=== PATIENT | female | born 1965 | race Caucasian/White ===

== ENCOUNTER 2018-03-23 01:57 | Emergency (ER) | payer MEDICARE, OTHER ==
[~2018-03-23] VITALS: Ht 162.6 cm; Wt 90.7 kg
--- NOTE | 2018-03-23 02:06 | NUR ---
PT BIB RA. COMP OF HAVING "LOWER BACK PAIN, B L L E WEAKNESS, DIZZINESS" NO SOB NOTED. NO ACUTE DISTRESS AT THIS TIME. PT AOX4. AWARE OF SAFETY NEEDS. AWAITING MD BLANK.
--- NOTE | 2018-03-23 02:09 | NUR ---
TECH AT BEDSIDE FOR EKG
--- NOTE | 2018-03-23 02:25 | NUR ---
Note miguel a in EDM - 03/23/18 at 0241 by JOSEPH PT MT RA. COMP OF HAVING "LOWER BACK PAIN, B L L E WEAKNESS, DIZZINESS" NO SOB NOTED. NO ACUTE DISTRESS AT THIS TIME. PT AOX4. AWARE OF SAFETY NEEDS. AWAITING MD BLANK.
[2018-03-23] MEDS ORDERED: IV NS 0.9% 1,000 ML BAG IV ONE ×2 (02:30→06:00)
[2018-03-23 02:36] LABS: BASOPHILS # (AUTO) 0.1 /CMM (0.0-0.2); BASOPHILS % (AUTO) 0.7 % (0.0-2.0); HEMATOCRIT 41 % (33-45); HEMOGLOBIN 13.7 g/dL (11.5-14.8); LYMPHOCYTES # (AUTO) 1.8 /CMM (0.8-4.8); LYMPHOCYTES % (AUTO) 18.5 % (20.0-44.0); MEAN CORPUSCULAR HGB CONC 34 g/dl (31.0-36.0); MEAN CORPUSCULAR VOLUME 88 fL (82-100); MONOCYTES % (AUTO) 10.1 % (2.0-12.0); NEUTROPHILS # (AUTO) 6.8 /CMM (1.8-8.9); NEUTROPHILS % (AUTO) 69.7 % (43.0-81.0); PLATELET COUNT (AUTO) 241 /CMM (150-450); RED BLOOD CELL COUNT(AUTO) 4.63 MIL/uL (4.0-5.2); WHITE BLOOD COUNT (AUTO) 9.7 K/uL (4.3-11.0)
[2018-03-23 02:43] LABS: CREATININE 1.1 mg/dL (0.6-1.3); POTASSIUM 3.6 mmol/L (3.5-5.1)
--- NOTE | 2018-03-23 02:43 | NUR ---
PT TAKEN TO RADIOLOGY FOR CT VIA [facility]
[2018-03-23 02:49] LABS: BILIRUBIN,DIRECT 0.1 mg/dL (0.0-0.2); BILIRUBIN,TOTAL 0.4 mg/dL (0.2-1.0); TOTAL PROTEIN, SERUM 7.9 g/dL (6.4-8.2)
[2018-03-23] MEDS ORDERED: HYDROCODONE/APAP 10/325MG 1 EA TABLET PO ONE (04:00)
[2018-03-23] MEDS ORDERED: HYDROCODONE/APAP 10/325MG 1 EA TABLET ONE (04:07)
--- NOTE | 2018-03-23 05:32 | NUR ---
Patient is resting comfortably in bed with eyes closed. Easily aroused. VSS. PT RESP EVEN AND UNLABORED. NAD NOTED. WILL CONTINUE TO MONITOR.
--- NOTE | 2018-03-23 07:00 | NUR ---
received report from manufacturing supervisor 2nd shift RN, patient is resting and sleeping, in no apparent distress noted.
--- NOTE | 2018-03-23 07:24 | NUR ---
ENDORSED TO DONNELL DONIS FOR [facility]
--- NOTE | 2018-03-23 15:30 | NUR ---
called [facility] and informed to talk to the patient in regards with housing.
--- NOTE | 2018-03-23 15:45 | NUR ---
[facility] spoke to the patient and agreed to go to a board and care and will be citrus picker at 1635 by the carbon setter of the board and care.
--- NOTE | 2018-03-23 16:10 | NUR ---
LILLIANA received a call from pt's DONNELL Newman in ED stating pt. needs placement. Pt. is a 52 year old female who came to ED complaining about back pain. Per ED physician, Dr. Ford, patient has multiple somatic complaints which apparently started 5 days ago when she allegedly tripped on a opening in the driveway of a residence that she was staying at. LILLIANA met with pt. bedside. Pt. is alert and oriented x 4. Pt. states she was renting a room from [employer] but left the residence because it was filthy. Pt's though process is circumstantial. Pt. has all of her belongings in a UHAUL. Pt. is open to going to a board and care. LILLIANA contacted [facility]'s board and care with pt. bedside to inquire if she has any female beds available. Leonela informed SW she does and to fax H&P from ED, medications and face sheet. LILLIANA faxed the aforementioned documents to [facility] at . LILLIANA received a call from Leonela stating she will accept the pt. at the [place] location and the marble finisher Sandie will be coming to visit and flower picker patient between 4:30p-5PM if pt. agrees to go. LILLIANA informed pt. about the marble finisher of the Board and Care coming to visit and pick her up if she agrees to go. Pt. has many questions that SW informed pt. to ask Sandie, the marble finisher. LILLIANA inquired with pt. what is her plan B incase she doesn't go to the board and care. Pt. stated she will ask her friend to pick her up and will stay at a motel if she needs to. LILLIANA updated DONNELL Newman with pt's discharge plan. No other social service needs are requested at this time. SW is available if needed.
--- NOTE | 2018-03-23 19:14 | NUR ---
board and care sales representative livestock on site and went to the patient room.
--- NOTE | 2018-03-23 19:26 | NUR ---
report given to fast food shift lead RN for [facility].
--- NOTE | 2018-03-23 19:30 | NUR ---
Received pt from DONNELL Newman. Pt came in with multiuple complaints pending placement in [facility]; [employer] data [facility] developer of facility, [facility], at . Pt states "I have other plans."
--- NOTE | 2018-03-23 21:00 | NUR ---
Pt stated she is calling a friend to come pick her up. Resting in bed comfortably.
--- NOTE | 2018-03-23 23:30 | NUR ---
Pt finally agreed to leave the unit. Stated she spoke with her friend on the phone and she will come pick her up. Assisted pt to the waiting area.
[2018-03-24 00:59] VITALS: BP 156/84
== END 2018-03-23 23:40 | disposition home or self-care (01) ==
LOC: ER 01:57
DX: R42 Dizziness and giddiness (principal); R53.1 Weakness; G89.29 Other chronic pain; M54.41 Lumbago with sciatica, right side; M54.42 Lumbago with sciatica, left side; I10 Essential (primary) hypertension; K21.9 Gastro-esophageal reflux disease without esophagitis; M72.2 Plantar fascial fibromatosis; Z90.710 Acquired absence of both cervix and uterus; Z98.890 Other specified postprocedural states; Z88.5 Allergy status to narcotic agent; Z88.8 Allergy status to other drugs, medicaments and biological substances; Z88.9 Allergy status to unspecified drugs, medicaments and biological substances
CPT/HCPCS: 36415; 70450; 71045; 72131; 80048; 80076; 85025; 93005; 96360; 96361; 99284; A4606; J7030 ×2

== ENCOUNTER 2019-08-12 20:07 | Emergency (ER) | payer MEDICARE, OTHER ==
[~2019-08-12] VITALS: Ht 162.6 cm; Wt 89.8 kg
--- NOTE | 2019-08-12 20:38 | NUR ---
RHETT FROM [facility]. TO ER BED 6. AAOX4. NOT IN RESP DISTRESS. WILLIE IN ON GURNEY. BROUGHT IN FOR PLEURITIC CHEST PAIN WHICH STARTED TODAY. PT IS REPORTED HAVING COUGH FOR THE PAST 3 WEEKS. PT IS ALOS POSITIVE FOR COVID BACK ON 07/22/19. PT IS ALREADY W/ PICC LNE UPON ARRIVAL, NOTED W/ 1 LUMEN. BLOOD DRAWN AND GIVEN TO FACETOR AT BEDSIDE. URINE IS ALSO COLLECTED. PT IS ALREADY ON ATB FOR UTI. WAS AT BEDSIDE FOR EVAL. ORDERS RECEIVED NOTED AND CARRIED OUT.
[2019-08-12 20:43] LABS: BASOPHILS # (AUTO) 0.1 /CMM (0.0-0.2); BASOPHILS % (AUTO) 1.2 % (0.0-2.0); EOSINOPHILS % (AUTO) 2.7 % (0.0-6.0); HEMATOCRIT 37 % (33-45); HEMOGLOBIN 11.9 g/dL (11.5-14.8); LYMPHOCYTES # (AUTO) 2.6 /CMM (0.8-4.8); LYMPHOCYTES % (AUTO) 35.1 % (20.0-44.0); MEAN CORPUSCULAR HGB CONC 32 g/dl (31.0-36.0); MEAN CORPUSCULAR VOLUME 92 fL (82-100); MONOCYTES # (AUTO) 0.7 /CMM (0.1-1.30); MONOCYTES % (AUTO) 9.2 % (2.0-12.0); NEUTROPHILS # (AUTO) 3.8 /CMM (1.8-8.9); NEUTROPHILS % (AUTO) 51.8 % (43.0-81.0); PLATELET COUNT (AUTO) 237 /CMM (150-450); RED BLOOD CELL COUNT(AUTO) 4.08 MIL/uL (4.0-5.2); WHITE BLOOD COUNT (AUTO) 7.4 K/uL (4.3-11.0)
[2019-08-12 20:53] LABS: APPEARANCE,URINE Slightly Cloudy (CLEAR); BILIRUBIN,URINE Negative (NEGATIVE); BLOOD, URINE Trace-intact Ery/uL (NEGATIVE); COLOR,URINE Orange (YELLOW); KETONES,URINE Negative (NEGATIVE); LEUKOCYTE ESTERASE ,URINE Trace (NEGATIVE); NITRITE, URINE Positive (NEGATIVE); PROTEIN,URINE 30 mg/dl (NEGATIVE); UGLUCOSE 100 MG/DL mg/dL (NEGATIVE)
[2019-08-12 21:00] LABS: CARBON DIOXIDE 34 mmol/L (21-32); CHLORIDE 100 mmol/L (98-107); CREATININE 0.9 mg/dL (0.6-1.3); GLUCOSE 163 mg/dL (74-106); POTASSIUM 3.9 mmol/L (3.5-5.1); SODIUM SERUM 140 mmol/L (136-145); UREA NITROGEN, BLOOD 14 mg/dL (7-18)
[2019-08-12 21:16] LABS: ALANINE AMINOTRANSFERASE 42 U/L (12-78); ALBUMIN 3.4 g/dL (3.4-5.0); ALKALINE PHOSPHATASE 74 U/L (46-116); ASPARTATE AMINOTRANSFERASE 24 U/L (15-37); B-TYPE NATRIURETIC PEPTIDE 46 PG/ML (0-125); BILIRUBIN,TOTAL 0.2 mg/dL (0.2-1.0); TOTAL PROTEIN, SERUM 6.9 g/dL (6.4-8.2)
[2019-08-12 21:23] LABS: BACTERIA,URINE 1+ /HPF (None Seen); SQUAMOUS EPITHELIAL CELL,UR Few /HPF (None Seen)
--- NOTE | 2019-08-12 21:30 | NUR ---
PT TO CT ON [facility]
[2019-08-12] MEDS ORDERED: IOHEXOL-350 100 ML VIAL IV ONE (21:35)
[2019-08-12 21:45] LABS: C-REACTIVE PROTEIN 0.9 mg/dL (0.0-0.9); CREATINE KINASE, TOTAL 42 U/L (26-192); FERRITIN 149 ng/mL (8-388)
--- NOTE | 2019-08-12 22:22 | NUR ---
ETA FOR [facility]: 45MIN GOING BACK TO [facility]
--- NOTE | 2019-08-12 22:29 | NUR ---
REPORT GIVEN TO DONNELL FISHER FOR [facility] AT THE [facility]. RELAYED TO THAT ER MD RECOMMENDS TO PLACE THE PATIENT ON SUPPLEMENTAL OXYGEN AND MONITOR O2 SAT.
--- NOTE | 2019-08-12 22:56 | NUR ---
[facility]ENICE [facility] AT PT BEDSIDE FOR TRANSPORT BACK TO HER FACILITY. REPORT GIVEN TO AMBULANCE STAFF
[2019-08-12 23:27] VITALS: BP 128/82
== END 2019-08-12 22:58 ==
LOC: ER 20:09
DX: U07.1 COVID-19 (principal); R05 Cough; R09.02 Hypoxemia; K21.9 Gastro-esophageal reflux disease without esophagitis; N39.0 Urinary tract infection, site not specified; I10 Essential (primary) hypertension; M54.30 Sciatica, unspecified side
CPT/HCPCS: 36415; 71045; 71275; 80053; 81001; 82550; 82728; 83605; 83615; 83880; 84145; 84484; 85025; 85385; 85730; 86140; 87040 ×2; 87077; 87086; 87186; 93005; 99285; Q9967; 81000-TC